=== PATIENT | female | born 1965 | race Two or more races ===

== ENCOUNTER 2017-05-07 07:08 | Emergency (ER) | payer OTHER ==
[~2017-05-07] VITALS: Ht 157.5 cm; Wt 77.1 kg
[~2017-05-07 07:08] MED LIST: ORPH100T PO
== END 2017-05-07 10:51 | disposition home or self-care (01) ==
LOC: ER 07:08
DX: M54.5 Low back pain (principal); M62.838 Other muscle spasm

== ENCOUNTER 2017-12-31 06:43 | Emergency (ER) | payer OTHER ==
[~2017-12-31] VITALS: Ht 157.5 cm; Wt 72.6 kg
== END 2017-12-31 10:32 | disposition home or self-care (01) ==
LOC: ER 06:43
DX: R00.2 Palpitations (principal); F06.4 Anxiety disorder due to known physiological condition

== ENCOUNTER 2018-07-01 07:42 | Emergency (ER) | payer OTHER ==
[~2018-07-01] VITALS: Ht 157.5 cm; Wt 72.6 kg
== END 2018-07-01 10:50 | disposition home or self-care (01) ==
LOC: ER 07:42
DX: M54.32 Sciatica, left side (principal); H60.8X2 Other otitis externa, left ear

== ENCOUNTER 2019-04-18 12:03 | Emergency (ER) | payer OTHER ==
[~2019-04-18] VITALS: Ht 157.5 cm; Wt 68.0 kg
[2019-04-18] MEDS ORDERED: VISTARIL25 MG PO (16:44)
[2019-04-18] MEDS ORDERED: PEPCID AC20 MG PO (16:44)
== END 2019-04-18 17:22 | disposition home or self-care (01) ==
LOC: ER 12:03
DX: M54.5 Low back pain (principal)

== ENCOUNTER 2019-11-19 23:38 | Emergency (ER) | payer OTHER ==
[~2019-11-19] VITALS: Ht 157.5 cm; Wt 69.9 kg
[~2019-11-19 23:38] MED LIST changes: +PEPCID AC20 MG PO; +VISTARIL25 MG PO
[2019-11-20] MEDS ORDERED: VASOTEC2.5 MG (00:02)
[2019-11-20] MEDS ORDERED: PEPCID40 MG PO (02:34)
[2019-11-20] MEDS ORDERED: ZOFRAN4 MG PO (02:34)
== END 2019-11-20 02:38 | disposition home or self-care (01) ==
LOC: ER 23:38
DX: R07.89 Other chest pain (principal); F06.4 Anxiety disorder due to known physiological condition

== ENCOUNTER 2019-12-14 03:45 | Emergency (ER) | payer OTHER ==
[~2019-12-14] VITALS: Ht 157.5 cm; Wt 71.7 kg
[~2019-12-14 03:45] MED LIST changes: +PEPCID40 MG PO; +VASOTEC2.5 MG; +ZOFRAN4 MG PO
[2019-12-14] MEDS ORDERED: PREVACID30 MG PO (07:52)
[2019-12-14] MEDS ORDERED: PEPCID AC20 MG PO (07:52)
== END 2019-12-14 08:04 | disposition home or self-care (01) ==
LOC: ER 03:45
DX: K21.9 Gastro-esophageal reflux disease without esophagitis (principal); R07.89 Other chest pain

== ENCOUNTER 2019-12-28 06:16 | Emergency (ER) | payer OTHER ==
[~2019-12-28] VITALS: Ht 157.5 cm; Wt 68.0 kg
[~2019-12-28 06:16] MED LIST changes: +PREVACID30 MG PO
[2019-12-28] MEDS ORDERED: ULTRAM50 MG PO (16:29)
[2019-12-28] MEDS ORDERED: CARAFATE1 GM PO (16:29)
[2019-12-28] MEDS ORDERED: MAALOX MAXIMUM355 ML PO (16:29)
== END 2019-12-28 17:01 | disposition home or self-care (01) ==
LOC: ER 06:16
DX: K29.60 Other gastritis without bleeding (principal); R10.13 Epigastric pain; F41.8 Other specified anxiety disorders; Z03.818 Encounter for observation for suspected exposure to other biological agents ruled out

== ENCOUNTER 2020-05-25 21:57 | Emergency (ER) | payer OTHER ==
[~2020-05-25] VITALS: Ht 157.5 cm; Wt 61.2 kg
[~2020-05-25 21:57] MED LIST changes: +CARAFATE1 GM PO; +MAALOX MAXIMUM355 ML PO; +ULTRAM50 MG PO
== END 2020-05-26 04:47 | disposition home or self-care (01) ==
LOC: ER 21:57
DX: F06.4 Anxiety disorder due to known physiological condition (principal); Z03.818 Encounter for observation for suspected exposure to other biological agents ruled out

== ENCOUNTER 2021-01-23 10:02 | Emergency (ER) | payer OTHER ==
[~2021-01-23] VITALS: Ht 157.5 cm; Wt 77.1 kg
[2021-01-23] MEDS ORDERED: ENALAPRIL MALEAT5 MG (10:11)
== END 2021-01-23 14:46 | disposition home or self-care (01) ==
LOC: ER 10:02
DX: M94.0 Chondrocostal junction syndrome [Tietze] (principal); R07.89 Other chest pain

== ENCOUNTER 2022-04-29 06:17 | Emergency (ER) | payer OTHER ==
[~2022-04-29] VITALS: Ht 154.9 cm; Wt 67.1 kg
[~2022-04-29 06:17] MED LIST changes: +ENALAPRIL MALEAT5 MG
== END 2022-04-29 09:26 | disposition left against medical advice (07) ==
LOC: ER 06:17
DX: M54.9 Dorsalgia, unspecified (principal); Z88.8 Allergy status to other drugs, medicaments and biological substances; I10 Essential (primary) hypertension

== ENCOUNTER 2024-06-08 08:13 | Outpatient (CLI) | payer OTHER | END 2024-06-08 08:22 | disposition home or self-care (01) | LOC: RAD 08:13 | PROVIDERS: ATTEND Physical Medicine & Rehabilitation Pediatric Rehabilitation Medicine | DX: M54.17 Radiculopathy, lumbosacral region (principal); M41.9 Scoliosis, unspecified ==